=== PATIENT | male | born 1990 | race Caucasian/White ===

== ENCOUNTER 2024-02-06 06:18 | Inpatient (IN) | payer OTHER, SELFPAY ==
[2024-02-06] VITALS (9 sets, daily range): BP systolic 96–160; BP diastolic 49–100; PULSE 62–82; RESP 12–16; TEMP 36.5–37.2; O2SAT 95–97; BMI 20.5
--- NOTE | ~2024-02-06 | XR_ITS ---
EXAMINATION: XR HAND, LEFT CLINICAL INFORMATION: Left hand pain and swelling COMPARISON: None available. TECHNIQUE: PA, lateral, and oblique views of the left hand. FINDINGS: Prominent soft tissue swelling in the thenar region and thumb. No soft tissue gas or radiopaque foreign body. No fracture or malalignment. XR/XR hand LT min 3V IMPRESSION: Prominent soft tissue swelling. No fracture or malalignment.
--- NOTE | 2024-02-06 06:34 | PC.NURSE ---
security called to check pt belongings due to herion use prior to arrival, reason for coming was due to infection to hand from heroin injected.
--- NOTE | 2024-02-06 06:50 | ED_ITS ---
HPI - Wound/Laceration General Chief Complaint: Wound/Laceration Stated Complaint: infection on rt hand Time Seen by Provider: 02/06/24 06:31 Source: patient and RN notes reviewed Mode of arrival: ambulatory Limitations: no limitations History of Present Illness HPI narrative: This is a 33-year-old male, with a history IV drug abuse, presenting to the emergency department with complaints of left hand wound, hand swelling, and pain x2 days. Patient reports that he noticed a wound develop on his left thumb, and reports over the last 2 days he has had worsening swelling, redness, and pain. He admits that he has injected into his hand but states he has not done this in several weeks. He last used 3 hours ago, reporting used a couple of bags of heroin. He admits to subjective fevers and chills. Denies any chest pain, shortness for breath, abdominal pain, nausea, vomiting or diarrhea. No other complaints or concerns at this time. Onset (ago): day(s) Extremity Location: left: hand Patient tetanus UTD: Yes Context: sharp object use Associated symptoms: pain and fever (subjective) Related Data Allergies Allergy/AdvReac Type Severity Reaction Status Date / Time No Known Allergies Allergy Verified 02/06/24 06:33 Review of Systems 2 Review of Systems: Yes all other systems are reviewed and are negative Constitutional: Constitutional: Reports as per HPI [facility] Social History Social History Smoked in Last 30 Days: Yes Use of substances other than those prescribed or required for medical reasons: No Advance Directives: No Advance Directives Information Provided: No Physical Exam 2 Vital Signs: Vital Signs: Last Vital Signs Temp 98.2 F 02/06/24 08:23 Pulse 68 02/06/24 09:56 Resp 13 02/06/24 09:56 BP 123/66 02/06/24 09:56 Pulse Ox 97 02/06/24 09:56 O2 Del Method Room Air 02/06/24 09:56 BMI result Body Mass Index 20.5 Const: General: cooperative, comfortable and no acute distress O rientation/consciousness: patient oriented x3 Limitations: no limitations HEENT: Head: Yes normal to inspection, Yes normocephalic and Yes atraumatic Ears: hearing grossly normal bilaterally General nose exam: Normal external nose present Face and sinus: Yes normal facial exam Mouth: Normal oral and palatal mucosa present, oropharynx normal and moist mucous membranes Throat: Yes posterior oropharynx normal Eyes: General: appearance normal, both eyes and all related structures E yelids: Yes eyelids normal Conjunctivae: conjunctivae normal Sclerae: s clerae normal Pupils: Equal, round and reactive pupils present EOM: EOMs intact bilaterally Neck: Neck: Yes normal visual inspection, Yes full ROM and Yes no lymphadenopathy Lymphatic: no lymphadenopathy noted Chest: Chest palpation & inspection: normal inspection of the chest Resp: Effort & Inspection: normal respiratory effort and able to speak in complete sentences Auscultation: clear to auscultation bilaterally, no crackles, no rales, no rhonchi and no wheezes Cardio: Rate: regular rate Rhythm: regular rhythm Heart sounds: S1 normal heart sound present and S2 normal heart sound present GI: Inspection: Yes normal to inspection Skin: General skin exam: no rashes or lesions noted Trauma: no lacerations or abrasions Wounds: no wounds Neuro: General: patient oriented x3 and moves all extremities Cranial nerves: Yes Equal, round and reactive pupils present Extrem: Other: Left hand with 2.5cm open ulceration noted to the first MCP. Unable to flex and extend at this joint. Profound erythema edema. Induration noted along the 1st digit with exquisite tenderness. Unable to oppose thumb to 3rd 4th and 5th finger. Strong radial pulse. Able to make a fist. General: Yes normal to inspection Right upper extremity: normal to inspection Left upper extremity: normal to inspection Right lower extremity: normal to inspection Left lower extremity: normal to inspection Course Reevaluation(s) Reevaluation #1: Patient with leukocytosis at 18.6, with a left shift. He does have normocytic anemia with an H&H of 9.5/28.8. CRP 7.92. ESR 44. BUN elevated at 24. Creatinine 0.70. X-ray revealing prominent soft tissue swelling, no fracture or malalignment. Discussed case with Shilpa Bates PA-C recommend warm water soaks to allow to open and drain. Will admit to hospitalist for further intervention. Time: 08:53 Reevaluation #2: Shilpa Bates PA-C from orthopedics saw patient at bedside, recommending NPO at midnight in case orthopedics team may need to perform a washout. Dr. Santos accepts transfer of care to hospitalist service. Transfer of care initiated. Time: 09:48 Medications Administered Discontinued Medications Generic Name Dose Route Start Last Admin Trade Name Perez PRN Reason Stop Dose Admin Bacitracin 1 appl 02/06/24 07:15 02/06/24 07:38 Bacitracin Oint 0.9 Gm Packet TOPICAL 02/06/24 07:16 1 appl ONCE ONE Administration Protocol Piperacillin Sod/Tazobactam 50 mls @ 100 mls/hr 02/06/24 06:52 02/06/24 08:11 Sod 3.375 gm/ Sodium Chloride IV 02/06/24 07:21 Infused ONCE ONE Infusion Vancomycin HCl 2,000 mg in 500 mls @ 250 mls/hr 02/06/24 06:52 02/06/24 08:27 Vancomycin/Ns IV 02/06/24 08:51 250 mls/hr ONCE ONE Administration Sodium Chloride 1,000 mls @ 999 mls/hr 02/06/24 08:01 02/06/24 08:27 Ns IV 02/06/24 09:01 999 mls/hr .Q1H1M ONE Administration Medical Decision Making Medical Decision Making [facility] Narrative: This is a 33-year-old male, with a history of IV drug abuse, presenting to the emergency department with complaints of left thumb wound, left hand swelling, redness x2 days. On arrival, vital signs within normal limits. Patient has ulceration/abscess noted to the left PIP with decreased range of motion of the left thumb, diffuse induration, erythema warmth to the entire hand. He is nontoxic appearing, afebrile. Plan: Labs, x-ray, Zosyn and vanco, orthopedic consult, possible admission Differential Diagnosis Differential Diagnoses: The differential diagnosis associated with the presentation includes Cellulitis, abscess, osteomyelitis, tenosynovitis Admission/Observation Consideration of admission/observation: Escalation of care including admission/observation considered Patient requiring IV antibiotics Consult Healthcare Provider Management of the patient was discussed with: Hospitalist and Safety And Health Consultant Orthopedist, KATHRYN Bates Hospitalist - Dr. Santos Lab Data [facility] Lab Attestation statement: I reviewed the patient's lab results. Patient with leukocytosis at 18.6, with a left shift. He does have normocytic anemia with an H&H of 9.5/28.8. CRP 7.92. ESR 44. BUN elevated at 24. Creatinine 0.70. 02/06/24 07:28 02/06/24 07:28 Labs: Lab Results 02/06/24 02/06/24 Range/Units 07:28 10:52 WBC 18.6 H (4.8-10.8) X10*3/uL RBC 3.53 L (4.60-5.80) X10*6/uL Hgb 9.5 L (14.0-18.0) g/dl Hct 28.8 L (42.0-52.0) % MCV 81.6 (80.0-98.0) fL MCH 26.9 L (27.0-33.0) pg MCHC 33.0 (31.0-36.0) g/dl RDW 13.8 (11.0-16.0) % Plt Count 381 (160-400) X10*3/uL MPV 9.6 (9.4-12.4) fL Immature Gran % (Auto) 0.5 H (0.0-0.4) % Neut % (Auto) 78.0 H (45-73) % Lymph % (Auto) 10.7 L (20-40) % [place] % (Auto) 6.6 (2-11) % Eos % (Auto) 3.8 (0-4) % Baso % (Auto) 0.4 (0-2) % Lymph # (Auto) 2.0 (1.2-4.9) X10*3/uL [place] # (Auto) 1.2 (0.1-1.2) X10*3/uL Eos # (Auto) 0.7 H (0.0-0.4) X10*3/uL Baso # (Auto) 0.1 (0.0-0.2) X10*3/uL Abs Immat Gran (auto) 0.10 H (0.00-0.03) X10*3/uL Absolute Neuts (auto) 14.5 H (2.0-8.3) x10*3/uL Absolute Nucleated RBC 0.000 (0.0-0.012) X10*3/uL Nucleated RBC % (auto) 0.0 (0.0-0.2) /100WBC ESR 44 H (0-15) MM/HR Sodium 137 (135-145) mmol/L Potassium 3.7 (3.3-5.1) mmol/L Chloride 105 (96-108) mmol/L Carbon Dioxide 24 (22-29) mmol/L Anion Gap 12 (12-20) BUN 24 H (9-16) mg/dL Creatinine 0.78 (0.5-1.4) mg/dL Estim Creat Clear Calc 136.9 Estimated GFR > 60 Random Glucose 138 H (60-115) mg/dL Calcium 8.8 (8.4-10.2) mg/dL Total Bilirubin 0.2 (0.0-1.0) mg/dL Direct Bilirubin 0.2 (0.0-0.5) mg/dL AST 34 (5-37) U/L ALT 32 (0-40) U/L Alkaline Phosphatase 69 (39-117) U/L C-Reactive Protein 7.92 H (< or = 0.50) mg/dL Total Protein 6.9 (6.5-8.0) g/dL Albumin 3.5 (3.5-5.0) g/dL Urine Color Yellow Urine Appearance Clear Urine pH 6.0 (5.0-9.0) Ur Specific [place] 1.020 (1.005-1.025) Urine Protein Negative (Neg-Trace) mg/dL Urine Glucose (UA) Negative (Negative) mg/dL Urine Ketones Negative (Negative) mg/dL Urine Blood Negative (Negative) Urine Nitrite Negative (Negative) Ur Leukocyte Esterase Negative (Negative) Urine Opiates Screen POSITIVE H (Not Detect) Urine Fentanyl Screen POSITIVE H (Not Detect) Ur Barbiturates Screen Not Detected (Not Detect) Ur Phencyclidine Scrn Not Detected (Not Detect) Ur Amphetamines Screen Not Detected (Not Detect) U Benzodiazepines Scrn Not Detected (Not Detect) Urine Cocaine Screen POSITIVE H (Not Detect) U Marijuana (THC) Screen Not Detected (Not Detect) Independent Interpretation I performed an independent interpretation of an: Plain X-Ray Interpretation: I reviewed the x-ray and agree with the radiology report Radiology Impression Discussion of test interpretation with radiology: I have reviewed the radiologist's reading. Radiologist Impression: EXAMINATION: XR HAND, LEFT CLINICAL INFORMATION: Left hand pain and swelling COMPARISON: None available. TECHNIQUE: PA, lateral, and oblique views of the left hand. FINDINGS: Prominent soft tissue swelling in the thenar region and thumb. No soft tissue gas or radiopaque foreign body. No fracture or malalignment. XR/XR hand LT min 3V IMPRESSION: Prominent soft tissue swelling. No fracture or malalignment. Dictated By: Vidal Kohli MD External Record Review External record reviewed: Inpatient record, Office record, Outpatient record, Prior outpatient labs, Prior outpatient radiology, Primary care record and Outside ED record Critical Care Time Critical Care Time Critical Care Time: Yes Total Critical Care Time: 35 Attestation: I have personally provided critical care time exclusive of time spent on separately billable procedures. Time includes review of lab data, radiology results, discussion with consultants, and monitoring for potential decompensation. Intervention performed as documented. Discharge Plan Discharge Clinical Impression: Cellulitis, Abscess of hand Patient Disposition: Admitted As Inpatient
--- NOTE | 2024-02-06 06:58 | PC.NURSE ---
security came and checked pt for contraban
[2024-02-06 07:33] LABS: MANUAL DIFF FLAG NO
[2024-02-06] MEDS: Bacitracin Oint 0.9 GM PACKET 1 APPL TOPICAL (07:38)
[2024-02-06] MEDS: Piperacillin Sodium/Tazobactam 3.375 GM in 0.9 % Sodium Chloride 50 ML IV (07:38)
[2024-02-06 07:54] LABS: Basophils Absolute Auto 0.1 X10*3/uL (0.0-0.2); Basophils Percent Auto 0.4 % (0-2); Eosinophils Absolute Auto 0.7 X10*3/uL (0.0-0.4); Eosinophils Percent Auto 3.8 % (0-4); Hematocrit 28.8 % (42.0-52.0); Hemoglobin 9.5 g/dl (14.0-18.0); Imm Gran Pct Auto 0.5 % (0.0-0.4); Lymphocytes Percent Auto 10.7 % (20-40); Mean Corpuscular Hemoglobin 26.9 pg (27.0-33.0); Mean Corpuscular Volume 81.6 fL (80.0-98.0); Mean Platelet Volume 9.6 fL (9.4-12.4); Monocytes Absolute Auto 1.2 X10*3/uL (0.1-1.2); Monocytes Percent Auto 6.6 % (2-11); Neutrophils Absolute Auto 14.5 x10*3/uL (2.0-8.3); Platelet Count 381 X10*3/uL (160-400); Red Blood Count 3.53 X10*6/uL (4.60-5.80); Red Cell Distribution Width 13.8 % (11.0-16.0); White Blood Count 18.6 X10*3/uL (4.8-10.8)
[2024-02-06 07:59] LABS: Alanine Aminotransferase 32 U/L (0-40); Albumin Level 3.5 g/dL (3.5-5.0); Alkaline Phosphatase 69 U/L (39-117); Anion Gap 12 (12-20); Aspartate Amino Transferase 34 U/L (5-37); Bilirubin Direct 0.2 mg/dL (0.0-0.5); Bilirubin Total 0.2 mg/dL (0.0-1.0); Blood Urea Nitrogen 24 mg/dL (9-16); C Reactive Protein 7.92 mg/dL (< or = 0.50); Calcium 8.8 mg/dL (8.4-10.2); Carbon Dioxide 24 mmol/L (22-29); Chloride 105 mmol/L (96-108); Creatinine Clr Calc Pharmacy 136.9; Estimated Glomerular Filt Rate > 60; Glucose Random 138 mg/dL (60-115); Potassium 3.7 mmol/L (3.3-5.1); Sodium 137 mmol/L (135-145); Total Protein 6.9 g/dL (6.5-8.0)
--- NOTE | 2024-02-06 08:11 | PC.NURSE ---
this RN resumed care of pt at this time. a&ox4 but pt is seemingly sleepy. pt dozing off but is responsive to verbal stimuli when he is asked questions. vss and up to date. nsr on the court recording monitor. pt presents to the ED d/t left hand pain d/t recent IV drug use. pt verbalizes using cocaine/heroin via IV [employer]. left hand extremely red/swollen. abscess noted to the left thumb. clear drainage noted coming from thumb area. no distinct smell noted. pt afebrile. pt extremely sensitive/hand tender to the touch. left hand wrapped w/ bacitracin, nonstick, pad, A&D pad, and gauze. delay in medication administration d/t being a difficult stick. 20gIV placed in the left forearm. medication administered per provider order. no sob/wob noted. respirations even and unlabored. plan of care ongoing. call onofre placed within reach.
[2024-02-06 08:15] LABS: Erythrocyte Sedimentation Rate 44 MM/HR (0-15)
[2024-02-06] MEDS: 0.9 % Sodium Chloride 1,000 ML 999 ML IV (08:27)
[2024-02-06] MEDS: vancomycin/NS 2,000 MG/500 ML PLAST..BAG 250 MG IV (08:27)
--- NOTE | 2024-02-06 08:30 | PC.NURSE ---
abx/IVF administered per provider order.
--- NOTE | 2024-02-06 10:15 | PC.NURSE ---
vss and up to date. nsr on the classroom monitor. pt resting comfortably w/ eyes closed in no apparent distress at this time. respirations remain even and unlabored. pt pending admission at this time. plan of care ongoing. call onofre placed within reach.
--- NOTE | 2024-02-06 10:53 | PC.NURSE ---
UA/drug screen obtained/sent to lab by [facility].
[2024-02-06 11:05] LABS: Appearance Urine Clear; Color Urine Yellow; Glucose Urine UA Negative (Negative); Leukocyte Esterase Urine Negative (Negative); Nitrite Urine Negative (Negative); Urine Blood Negative (Negative); Urine Ketones Negative (Negative); Urine Protein Negative (Neg-Trace)
--- NOTE | 2024-02-06 11:06 | PM.IMHP ---
History of Present Illness Date of Service: 02/06/24 Chief Complaint: Abscess and cellulitis of the left hand A 33-year-old male, right-hand dominant, with a history of IV drug injection, presents with a wound and swelling in his left hand (see picture below) for the past 2 days. It began as a wound on the thumb and has progressively worsened, becoming more swollen, draining, and red. He admits to injecting into his hand remotely. He reports subjective fever and chills. X-ray of the hand shows prominent soft tissue swelling with no fracture or malalignment. Ortho has been consulted and may explore the wound tomorrow. He has been administered IV Zosyn and Vancomycin, which will be continued. He is cooperative. Review of Systems Review of Systems: Gen: subjective fever Resp: no sob, no cough CV: no chest, no CALL, no leg edema GI: No n/v, no abd pain Neuro: No confusion MS: pain, swelling of the left hand Yes all other systems are reviewed and are negative [facility] Social History Smoked in Last 30 Days: Yes Use of substances other than those prescribed or required for medical reasons: No Advance Directives: No Advance Directives Information Provided: No Meds Allergies Allergy/AdvReac Type Severity Reaction Status Date / Time No Known Allergies Allergy Verified 02/06/24 06:33 Physical Exam Vital Signs and Narrative: Vital Signs: Last Vital Signs Temp 98.2 F 02/06/24 08:23 Pulse 68 02/06/24 09:56 Resp 13 02/06/24 09:56 BP 123/66 02/06/24 09:56 Pulse Ox 97 02/06/24 09:56 O2 Del Method Room Air 02/06/24 09:56 BMI result Body Mass Index 20.5 Constitutional: Alert, in no distress, Mental Status: Oriented to person, place and time. Eyes: Pupils are equal, round and reactive to light. Ear, Nose and Throat: Oropharynx clear, mucous membranes moist. Ears and nose without eformities. Trachea midline. Respiratory: Clear to auscultation. No wheezing, rales or rhonchi. Cardiovascular: S1 S2 regular. No murmurs, rubs or gallops. Gastrointestinal: Abdomen soft, non-tender, non-distended. Normal bowel sounds.? Neurologic: Cranial nerves II-XII grossly intact. No focal neurological deficits. Moves all extremities spontaneously.? Skin: Musculoskeletal: No cyanosis or clubbing. Psychiatric: Normal mood and affect? Results Labs 02/06/24 07:28 02/06/24 07:28 Labs: Laboratory Results - last 24 hr 02/06/24 02/06/24 07:28 10:52 MCV 81.6 MCH 26.9 L MCHC 33.0 RDW 13.8 Plt Count 381 MPV 9.6 Immature Gran % (Auto) 0.5 H Neut % (Auto) 78.0 H Lymph % (Auto) 10.7 L [place] % (Auto) 6.6 Eos % (Auto) 3.8 Baso % (Auto) 0.4 Lymph # (Auto) 2.0 [place] # (Auto) 1.2 Eos # (Auto) 0.7 H Baso # (Auto) 0.1 Abs Immat Gran (auto) 0.10 H Absolute Neuts (auto) 14.5 H Absolute Nucleated RBC 0.000 Nucleated RBC % (auto) 0.0 ESR 44 H Anion Gap 12 Estim Creat Clear Calc 136.9 Estimated GFR > 60 Random Glucose 138 H Calcium 8.8 Total Bilirubin 0.2 Direct Bilirubin 0.2 AST 34 ALT 32 Alkaline Phosphatase 69 C-Reactive Protein 7.92 H Total Protein 6.9 Albumin 3.5 Urine Color Yellow Urine Appearance Clear Urine pH 6.0 Ur Specific [place] 1.020 Urine Protein Negative Urine Glucose (UA) Negative Urine Ketones Negative Urine Blood Negative Urine Nitrite Negative Ur Leukocyte Esterase Negative Imaging Radiologist's Impressions: Impressions Hand X-Ray 02/06/24 07:05 IMPRESSION: Prominent soft tissue swelling. No fracture or malalignment. Assessment and Plan (1) Abscess of hand: Status: Acute (2) Cellulitis: Status: Acute Plan 33/M with IVDA here with cellulitis and abscess of the and left hand Sepsis d/t Cellulitis and abscess on the left hand -Continue Zosyn and Vanco, follow cultures -Ortho consult for possible I and D -ID consult for antibiotics guidance -Echo if becomes bacteremia -morphine for pain Opioid use desorder(positive for opioid and fentanyl)--Addiction med consult, clonidine for withdrwal symptoms, hydroxysine for anxiety, abstincence discussed Anemia likely related to chronic substance use--H/H above threshold for transfusion, monitor, DVT prophylaxis: lovenox Full Code At least 2 midngiths admit for management of sepsis, abscess and cellulitis of the ahdnd at risk for limb loss if not aggresively treated with IV Abx and expert evaluation with possible intervention Quality Stroke Does the patient have a stroke diagnosis?: No VTE Prior VTE?: No VTE Risk Level:: Medical - moderate - high VTE Device Contraindication: Treatment Not Indicated VTE Drug Contraindication: N/A - Med Ordered
[2024-02-06 11:11] LABS: Amphetamine Screen Urine Not Detected (Not Detect); Barbiturates, Urine Not Detected (Not Detect); Benzodiazepines Screen Urine Not Detected (Not Detect); Cannabinoid Screen Urine Not Detected (Not Detect); Cocaine Screen Urine POSITIVE (Not Detect); Fentanyl, urine POSITIVE (Not Detect); Opiate Screen Urine POSITIVE (Not Detect); Phencyclidine Screen Urine Not Detected (Not Detect)
--- NOTE | 2024-02-06 11:20 | PHA.PROG ---
Admission Date/Time: Indication: Sepsis Weight in k.575 kg Adjusted body weight in K kg [place] body weight in K.2 kg Obesity Dosing Indication % IBW: n/a Serum Creatinine - Last 168 Hours 02/06/24 07:28 Creatinine 0.78 Estimated CrCl and GFR - Last 168 Hours 02/06/24 07:28 Estim Creat Clear Calc 136.9 Estimated GFR > 60 Vancomycin Loading Dose: 2000 mg Current Vancomycin Dosing Regimen: 1250 mg Q12H Date and Time for next Vancomycin Level to be drawn: 02/06 @ 1800 Pharmacist Comments on Vancomycin Plan: patient recevied an adequate load dose in the ER on 02/05 @ 0827 maintenance dose vancomycin 1250 mg Q12H is scheduled to start on 02/05 @ 1999. Predict AUC 500 with a trough of 14.3. level will be drawn piror to 4th dose pharmacy will monitor renal funciton daily Edilia Jeffries PharmD Vancomycin dosing will take advantage of [employer] as a clinical decision support tool that uses Bayesian modeling to calculate individual patient's pharmacokinetic parameters and forecast the patient's drug concentration time course with the target goal AUC 24 range of 400 - 600 mg/L/hr.
[2024-02-06] MEDS: Enoxaparin Sodium 40 MG/0.4 ML SYRINGE SUBCUT (12:22)
--- NOTE | 2024-02-06 12:34 | PC.NURSE ---
medication administered per provider order.
--- NOTE | 2024-02-06 12:41 | PC.NURSE ---
security called to recheck pt's belongings at this time prior to pt being transported upstairs.
--- NOTE | 2024-02-06 13:03 | PC.NURSE ---
pt's belongings searched by security. contraband/knives found/taken to decon for when pt is d/c'd. $120 navarro also noted to be found. patient belongings list updated by Deminos at this time.
--- NOTE | 2024-02-06 13:10 | MHC.EDTECH ---
Security searched patients belongings and found knives and contraband on patient placed both in decon. RN AWARE
--- NOTE | 2024-02-06 13:20 | PC.NURSE ---
admission worksheet complete. transport notified at this time.
--- NOTE | 2024-02-06 14:19 | P.CONOP_ITS ---
History of Present Illness HPI Consult date: 02/06/24 Chief complaint: Sepsis Cellulitis and Abscess L Hand Narrative: A 33-year-old male, right-hand dominant, with a history of IV drug use, admitted to the medical service for IV abx for a wound in his left hand. Upon arrival to see the patient this morning, he was asleep and did not wake to me calling his name, knocking on the wall or lightly shaking him. Per ED provider, he came in earlier today after using. ED records state for the past 2 days It has progressively worsened, becoming more swollen, draining, and red. ED and hospital notes state he admits to injecting into his hand remotely. X-ray of the hand shows prominent soft tissue swelling with no fracture or malalignment. No foreign body. He has been administered IV Zosyn and Vancomycin and orthopedics was consulted for further recommendations. Review of Systems 2 Review of Systems: Yes all other systems are reviewed and are negative [facility] Social History Social History Patient Tobacco Use Status: Never used Tobacco Meds Allergies Allergy/AdvReac Type Severity Reaction Status Date / Time No Known Allergies Allergy Verified 02/06/24 06:33 Active Medications: Current Medications Acetaminophen (Acetaminophen 325 Mg Tablet) 650 mg PO Q6H PRN PRN Reason: Pain, Mild (Pain Scale 1-3) Clonidine HCl (Clonidine Hcl 0.1 Mg Tablet) 0.1 mg PO TID PRN; Protocol PRN Reason: Opiate Withdrawal Enoxaparin Sodium (Enoxaparin Sodium 40 Mg/0.4 Ml Syringe) 40 mg SUBCUT Q24H [facility] Last Admin: 02/06/24 12:22 Dose: 40 mg Hydroxyzine HCl (Hydroxyzine Hcl 25 Mg Tablet) 25 mg PO Q6H PRN PRN Reason: anxiety/restlessness Piperacillin Sod/Tazobactam (Sod 4.5 gm/ Sodium Chloride) 50 mls @ 100 mls/hr IV Q6H [facility] Last Infusion: 02/06/24 13:14 Dose: Infused Vancomycin HCl 1,250 mg/ (Sodium Chloride) 250 mls @ 166.667 mls/hr IV Q12H [facility] Magnesium Hydroxide (Milk Of Magnesia 30 Ml Oral.Susp) 30 ml PO DAILY PRN PRN Reason: Constipation Melatonin (Melatonin 3 Mg Tablet) 6 mg PO BEDTIME PRN PRN Reason: Insomnia Morphine Sulfate (Morphine Sulfate 4 Mg/Ml Cartridge) 2 mg IVPUSH Q4H PRN; Protocol PRN Reason: Pain, Severe (Pain Scale 7-10) Ondansetron HCl (Ondansetron Hcl 4 Mg/2 Ml Vial) 4 mg IVPUSH Q8H PRN PRN Reason: Nausea and Vomiting Pharmacy Consult (Consult Rx Vancomycin Dosing) 1 each MISCELLANE DAILY PRN PRN Reason: Consult order Sodium Chloride (0.9 % Sodium Chloride Flush 3 Ml Syringe) 3 ml IVFLUSH QSHIFT [facility] Physical Exam 2 Vital Signs: Vital Signs: Last Vital Signs Temp 98.2 F 02/06/24 14:07 Pulse 62 02/06/24 14:07 Resp 16 02/06/24 14:07 BP 96/51 L 02/06/24 14:07 Pulse Ox 97 02/06/24 14:07 O2 Del Method Room Air 02/06/24 14:07 BMI result Body Mass Index 20.5 Const: General: no acute distress Extrem: Other: Results Labs 02/06/24 07:28 02/06/24 07:28 Labs: Abnormal lab results 02/06/24 02/06/24 Range/Units 07:28 10:52 WBC 18.6 H (4.8-10.8) X10*3/uL RBC 3.53 L (4.60-5.80) X10*6/uL Hgb 9.5 L (14.0-18.0) g/dl Hct 28.8 L (42.0-52.0) % MCH 26.9 L (27.0-33.0) pg Immature Gran % (Auto) 0.5 H (0.0-0.4) % Neut % (Auto) 78.0 H (45-73) % Lymph % (Auto) 10.7 L (20-40) % Eos # (Auto) 0.7 H (0.0-0.4) X10*3/uL Abs Immat Gran (auto) 0.10 H (0.00-0.03) X10*3/uL Absolute Neuts (auto) 14.5 H (2.0-8.3) x10*3/uL ESR 44 H (0-15) MM/HR BUN 24 H (9-16) mg/dL Random Glucose 138 H (60-115) mg/dL C-Reactive Protein 7.92 H (< or = 0.50) mg/dL Urine Opiates Screen POSITIVE H (Not Detect) Urine Fentanyl Screen POSITIVE H (Not Detect) Urine Cocaine Screen POSITIVE H (Not Detect) H & H 02/06/24 Range/Units 07:28 Hgb 9.5 L (14.0-18.0) g/dl Hct 28.8 L (42.0-52.0) % All other labs normal. Assessment and Plan (1) Abscess of hand: Status: Acute Plan Unable to examine patient as he is asleep From the above picture, it appears to be an open wound which is draining I recommend warm water soaks continue IV abx NPO after midnight for possible washout tomorrow Procedures Date of Service Date of Service: 02/06/24
--- NOTE | 2024-02-06 15:17 | MHC.RECOVRN ---
Met with pt in 371 after consult placed to Addiction Medicine for opioid use disorder. Pt had presented to the ED reporting left thumb wound after using the area for injecting substances. Upon evaluation, pt admitted for abscess and cellulitis. Pt laying in bed, asleep, briefly wakes to voice. Unable to fully engage in conversation as pt is drowsy. Pt reports heroin/fentanyl use, 1-2 bundles daily, IV, last use prior to arrival. Pt is not currently on MOUD. Pt would like to utilize methadone while here to address any withdrawal symptoms that present. Pt quickly falls back to sleep during conversation, denies questions or concerns for t/w. Discussed with provider.
[2024-02-06] MEDS: 0.9 % Sodium Chloride Flush 3 ML SYRINGE IVFLUSH ×2 (15:28→20:39)
--- NOTE | 2024-02-06 15:31 | PHA.MEDREC ---
Pharmacy Consult ? Medication Reconciliation Pharmacy has completed the medication reconciliation. spoke with patient to confirm.
[2024-02-06] MEDS: 0.9 % Sodium Chloride 1,000 ML 150 ML IVCONT (15:39)
[2024-02-06] MEDS: vancomycin HCL 1,250 MG in 0.9 % Sodium Chloride 250 ML 166.67 MG IV (19:27)
[2024-02-06] MEDS: Morphine Sulfate 4 MG/ML CARTRIDGE 2 MG IVPUSH (20:38)
[2024-02-06] MEDS: hydrOXYzine HCL 25 MG TABLET PO (20:47)
[2024-02-06] MEDS: cloNIDine HCL 0.1 MG TABLET PO (20:47)
[2024-02-06] MEDS: Melatonin 3 MG TABLET 6 MG PO (20:47)
--- NOTE | 2024-02-06 21:21 | PM.EVENT ---
Event Note Date of Service: 02/06/24 Event Note: Nurse reported that patient wanted to leave AMA. Patient deemed to have capacity. Explained to him the risk of leaving including worsening of the hand infection, septicemia and/or . Patient understands the risks of his actions. He is unwilling to stay. Time Spent With Patient Time: Total time managing care of this patient today ____ minutes.
--- NOTE | 2024-02-06 21:38 | PC.NURSE ---
pt wants to leave as an AMA, doctor came in discuss with pt about the importance of the antibiotic and risk of AMA, this nurse tried to let him stay provided everything per eMar. he was asking for methodone 40 mg, he changed his mind he wants to leave. escort to ED security office to get his knife and pt asked to how to get to [facility] and walked out the door.
--- NOTE | 2024-02-07 07:21 | PM.DS ---
DS: Providers Provider Date of Service: 02/07/24 Date of admission: 02/06/24 11:38 Primary care physician: Unknown Physician Consults: 02/06/24 09:48 Consult to Orthopedics Stat Consulting Provider: [facility] Orthopedic Surgeons Reason for consultation: left hand cellulitis/abscess Has provider been notified: Yes 02/06/24 11:05 Addiction Medicine Routine Consulting Provider: Addiction Covering Reason for consultation: Opioid use desorder Has provider been notified: No 02/06/24 11:09 Consult to Infectious Diseases Routine Consulting Provider: [facility] Infectious Disease Reason for consultation: abscess cellulitis of the hand in a drug user DS: Diagnosis Discharge Diagnosis (1) Abscess of hand: Status: Acute DS: Summary Hospital Course Hospital Course: admission hpi A 33-year-old male, right-hand dominant, with a history of IV drug injection, presents with a wound and swelling in his left hand (see picture below) for the past 2 days. It began as a wound on the thumb and has progressively worsened, becoming more swollen, draining, and red. He admits to injecting into his hand remotely. He reports subjective fever and chills. X-ray of the hand shows prominent soft tissue swelling with no fracture or malalignment. Ortho has been consulted and may explore the wound tomorrow. He has been administered IV Zosyn and Vancomycin, which will be continued. He is cooperative. Hospital course: He was admitted with cellulitis and hand abscess and was being treated with IV Abx, and surgery was to assess him for need for I and D, he decied to leave A as discussed elsewhere. Final diagnosis: Cellulitis and abscess of the left hand Opioid use disorder Anemia Time Attestation Discharge Coordination Time (in mins): 15 Quality: Safe Use of Opioids Does Pt have an Active Cancer Diagnosis on the Problem List?: No Quality: Stroke Does the patient have a stroke diagnosis?: No Physical Exam Vital Signs: Vital Signs: Last Vital Signs Temp 99 F 02/06/24 19:44 Pulse 80 02/06/24 19:44 Resp 16 02/06/24 19:44 BP 97/54 L 02/06/24 19:44 Pulse Ox 97 02/06/24 19:44 O2 Del Method Room Air 02/06/24 19:44 BMI result Body Mass Index 20.5 DS: Data Data Completed and Pending Labs on day of discharge: Laboratory Results - last 24 hr 02/06/24 02/06/24 07:28 10:52 WBC 18.6 H RBC 3.53 L Hgb 9.5 L Hct 28.8 L MCV 81.6 MCH 26.9 L MCHC 33.0 RDW 13.8 Plt Count 381 MPV 9.6 Immature Gran % (Auto) 0.5 H Neut % (Auto) 78.0 H Lymph % (Auto) 10.7 L [place] % (Auto) 6.6 Eos % (Auto) 3.8 Baso % (Auto) 0.4 Lymph # (Auto) 2.0 [place] # (Auto) 1.2 Eos # (Auto) 0.7 H Baso # (Auto) 0.1 Abs Immat Gran (auto) 0.10 H Absolute Neuts (auto) 14.5 H Absolute Nucleated RBC 0.000 Nucleated RBC % (auto) 0.0 ESR 44 H Sodium 137 Potassium 3.7 Chloride 105 Carbon Dioxide 24 Anion Gap 12 BUN 24 H Creatinine 0.78 Estim Creat Clear Calc 136.9 Estimated GFR > 60 Random Glucose 138 H Calcium 8.8 Total Bilirubin 0.2 Direct Bilirubin 0.2 AST 34 ALT 32 Alkaline Phosphatase 69 C-Reactive Protein 7.92 H Total Protein 6.9 Albumin 3.5 Urine Color Yellow Urine Appearance Clear Urine pH 6.0 Ur Specific [place] 1.020 Urine Protein Negative Urine Glucose (UA) Negative Urine Ketones Negative Urine Blood Negative Urine Nitrite Negative Ur Leukocyte Esterase Negative Urine Opiates Screen POSITIVE H Urine Fentanyl Screen POSITIVE H Ur Barbiturates Screen Not Detected Ur Phencyclidine Scrn Not Detected Ur Amphetamines Screen Not Detected U Benzodiazepines Scrn Not Detected Urine Cocaine Screen POSITIVE H U Marijuana (THC) Screen Not Detected Discharge Plan Discharge Anticipated Discharge Date/Time: 02/06/24 21:24 Patient Disposition: Left Against Medical Advice Discharge Diagnosis: Cellulitis and abscess of the left hand Referrals: Physician,Karen J [Primary Care Provider] - 1 Week Discharge Medications: No Action No Known Home Meds Discharge Orders: Discharge Order (Routine); Ordered 02/07/24 Ordered By: Richi Barros Diet: Advance to usual diet Activity on Discharge: As tolerated Care Plan Goals: recovery from cellulitis and abscess of the left hand Health Concerns: cellulitis and abscess of the hand Plan of Treatment: Left AMA Assessment: see above Discharge Date/Time: 02/06/24 21:30
== END 2024-02-06 21:30 | disposition left against medical advice (07) | DRG 383 ==
LOC: HO.ED 11:15 → HO.EDOVER 11:43 → HO.S3 12:41
PROVIDERS: Physician Assistant Medical; Admitting Provider Internal Medicine; Emergency Provider Emergency Medicine; Visit Provider Internal Medicine
DX: L02.512 Cutaneous abscess of left hand (principal); A41.9 Sepsis, unspecified organism; D64.9 Anemia, unspecified; L03.012 Cellulitis of left finger; F11.90 Opioid use, unspecified, uncomplicated
CPT/HCPCS: 36415; 73130; 80048; 80076; 80307; 81003; 85025; 85652; 86140; 87040; 87070; 87077; 87186; 87205; 92950; 99221; 99285; J1650; J2270; J2543; J3370; J3371

== ENCOUNTER → 2024-02-06 11:38 | Outpatient (BNV) | payer OTHER, SELFPAY | PROVIDERS: Admitting Provider Internal Medicine; Emergency Provider Emergency Medicine; Visit Provider Physician Assistant | DX: L02.519 Cutaneous abscess of unspecified hand (principal) | CPT/HCPCS: 99221 ==

== ENCOUNTER → 2024-02-06 11:38 | Outpatient (BNV) | payer OTHER, SELFPAY | PROVIDERS: Admitting Provider Internal Medicine; Emergency Provider Emergency Medicine; Visit Provider Internal Medicine | DX: A41.9 Sepsis, unspecified organism (principal); L03.114 Cellulitis of left upper limb; L02.512 Cutaneous abscess of left hand; Z53.29 Procedure and treatment not carried out because of patient's decision for other reasons | CPT/HCPCS: 99235; 99499 ==

== ENCOUNTER 2024-02-21 05:19 | Emergency (ER) | payer OTHER, SELFPAY ==
[2024-02-21 05:25] VITALS: BP 117/74; BP 152/90; PULSE 114; PULSE 120; RESP 18; TEMP 36.3; O2SAT 100; O2SAT 97; BMI 18.1
--- NOTE | 2024-02-21 05:32 | ED.SEIZURE ---
HPI - Seizure General Chief Complaint: Seizure Stated Complaint: ?SZ,?POST ICTAL,NO H/O SZ PER EMS Time Seen by Provider: 02/21/24 05:21 Source: patient, EMS and old records reviewed Mode of arrival: EMS Limitations: no limitations History of Present Illness HPI Narrative: 33 yo male with PMH of IVDA used IV cocaine tonight. Had a 4 min GTC seizure now with facial trauma fought EMS on transport came to ED no longer postictal or confused still states he wants to leave AMA. He denies illness or trauma. He states he needs to leave to be with his . He is alert and oriented x 3. MD complaint: seizure and possible seizure Onset (ago): minute(s) (just prior to arrival ) Description of Episode: loss of consciousness Duration of episode: 4 -: minutes(s) Witnessed: Yes - by Bystander Trauma: Yes (R side facial) Seizure History: No Place: Home Possible Precipitating Event: drug use Associated symptoms: denies other symptoms Treatments prior to arrival: none Related Data Home Medications Medication Instructions Recorded Confirmed No Known Home Meds 02/06/24 02/06/24 Allergies Allergy/AdvReac Type Severity Reaction Status Date / Time No Known Allergies Allergy Verified 02/06/24 06:33 Review of Systems Review of Systems: Constitutional : No Fever, No Chills, No Fatigue ENT/Mouth : No sore throat, No Rhinorrhea Eyes: No Eye Pain, No Swelling, No Redness Cardiovascular : No Chest Pain, No SOB, No Dyspnea on Exertion Respiratory : No Cough, No Sputum Gastrointestinal : No Nausea, No Vomiting, No Diarrhea, No abdominal Pain Genitourinary : No Dysuria, No Urinary Frequency, No Hematuria, Musculoskeletal : No joint pain, No Myalgias, No Joint Swelling Skin : No Skin Lesions, No rash, pos contusion Neuro : No Weakness, No Numbness, No Dizziness, no Headache All other systems reviewed and are negative PMFSH Past Medical History Attestation statement: The following information was validated with the patient. Source: old records reviewed Medical History Intravenous drug abuse Abscess of hand Social History Social History Household Members: None Housing: Unknown / Unable to assess Do you presently have visiting nurse or other home services: No Alcohol intake: former Patient Tobacco Use Status: Never used Tobacco Smoked in Last 30 Days: Yes Use of substances other than those prescribed or required for medical reasons: Yes Substance Use Type: Crack/Cocaine and Heroin Last Used Substance: Hours (ago) Any prior treatment program specific to substance use: Yes Physical Exam Vital Signs: Vital Signs: Last Vital Signs Temp 97.4 F 02/21/24 05:25 Pulse 114 H 02/21/24 05:25 Resp 18 02/21/24 05:25 BP 117/74 02/21/24 05:25 Pulse Ox 97 02/21/24 05:25 O2 Del Method Room Air 02/21/24 05:25 BMI result Body Mass Index 18.1 Appearance: Alert. Oriented X3. No acute distress. Eyes: Pupils equal, round and reactive to light. ENT: Pharynx normal. Contusions to R zygoma and mandible with avulsed 1-2cm open abrasion on R lower mandible Neck: Normal inspection. Neck supple. CVS: tachycardic heart rate and rhythm. Pulses normal. Respiratory: No respiratory distress. Breath sounds normal. Abdomen: Soft and nontender. Skin: Skin warm and dry. Normal skin color. Normal skin turgor. Extremities: No lower extremity edema. No calf ttp Neuro: Oriented X 3. No motor deficit. No sensory deficit. Medical Decision Making Medical Decision Making MDM Narrative: 33 yo male with PMH of IVDA s/p seizure with facial trauma he is alert and oriented x 3 no distracting injury not postictal on arrival he agrees to PIC blood sugar but is going to leave AMA at this time has left AMA in the past. Offered labs, CT scans for trauma and ICH but he refuses. Able to repeat back and answer my questions. Differential Diagnosis Differential Diagnoses: The differential diagnosis associated with the presentation includes seizure related to drug abuse, trauma, ICH, TBI Admission/Observation Consideration of admission/observation: Escalation of care including admission/observation considered refuses workup alert and oriented x 3 aware we are worried about more seizures, trauma, lab abnormalities, ICH, fracture but still refuses workup Lab Data Labs: Lab Results 02/21/24 Range/Units 05:32 POC Glucose 91 (60-115) mg/dL Independent Interpretation I performed an independent interpretation of an: EKG Interpretation: Rate: 105 Rhythm: sinus tachycardia [place]: normal Normal P waves. Normal THO. incomplete RBBB ST T wave : mp BRANDON. inverted t waves aVL, V1-V2 qTC: 473 prior studies: no STEMI The study has been interpreted contemporaneously by me. . Independent Historian Clinical information obtained from an independent historian. History obtained from or confirmed by: EMS External Record Review External record reviewed: Inpatient record Tests considered The following testing was considered but not selected: labs, CT scans Procedures Laceration Laceration 1: Site: face Side (If applicable): right Size (cm): 1 Description: flap and irregular Depth: simple, single layer Pre-repair: wound explored, irrigated extensively and deep structures intact Skin layer closed with: other (skin adhesive) Discharge Plan Discharge Clinical Impression: Seizure-like activity Facial trauma Qualifiers: Encounter type: initial encounter Qualified Code(s): S09.93XA - Unspecified injury of face, initial encounter Patient Disposition: Left Against Medical Advice Instructions: Head Injury (ED), Skin Adhesive Care (ED), Against Medical Advice (ED), New-Onset Seizure in Adults (ED), Facial Contusion (ED) Additional Instructions: you left against medical advice it was advised you stay for labs, electrocardiogram, blood work, CT scan of head, facial bones for trauma. You were also offered medications while in the ED. if you change your mind or have return or worsening of symptoms please return at any time surgical glue will fall off in 1 week Prescriptions: No Action No Known Home Meds Stand Alone Forms: Against Medical Advice
--- NOTE | 2024-02-21 05:34 | ECG_ITS ---
Test Reason : ??SEIZURE Blood Pressure : / mmHG Vent. Rate : 105 BPM Atrial Rate : 105 BPM P-R Int : 150 ms QRS Dur : 110 ms QT Int : 358 ms P-R-T Axes : 068 066 069 degrees QTc Int : 473 ms Sinus tachycardia Incomplete right bundle branch block Borderline ECG No previous ECGs available Referred By: Valerie Christopher Electronically Signed By:DEE SKAGGS MD
[2024-02-21 05:35] LABS: Glucose, Whole Blood 91 mg/dL (60-115)
--- NOTE | 2024-02-21 05:48 | PC.NURSE ---
Patient BIBA from [facility] for evaluation of possible seizure. According to patient's spouse he was on the restroom floor, behind the closed door seizing approximately 2 min. Patient admitting using cocaine few hour prior to the seizure activity. On arrival to ED, patient is alert and oriented x3, tach hr 112-114. Lac noted to right cheek. POC 91. EKG completed. Seizure pads applied to side rails. Patient placed on media monitor. Patient is alert and oriented x3, he denies any pain. Patient requesting to leave against medical advise, patient refusing labs, CT scan, X-ray, IV medications. Dr. Candi rubio. applied surgical glue to right jaw laceration.
[2024-02-21 06:04] VITALS: BP 110/74; PULSE 110; RESP 18; TEMP 36.3; O2SAT 97
== END 2024-02-21 06:44 | disposition left against medical advice (07) ==
LOC: HO.ED 06:45
PROVIDERS: Emergency Provider Emergency Medicine
DX: S01.81XA Laceration without foreign body of other part of head, initial encounter (principal); R00.0 Tachycardia, unspecified; R51.9 Headache, unspecified; X58.XXXA Exposure to other specified factors, initial encounter; Y93.9 Activity, unspecified; Y92.9 Unspecified place or not applicable; Y99.8 Other external cause status
CPT/HCPCS: 12011; 82947; 93005; 99283; 99284

== ENCOUNTER → 2024-02-21 05:34 | Outpatient (BNV) | payer OTHER, SELFPAY | PROVIDERS: Emergency Provider Emergency Medicine; Visit Provider Internal Medicine Cardiovascular Disease | DX: R00.0 Tachycardia, unspecified (principal) | CPT/HCPCS: 93010 ==

== ENCOUNTER 2024-03-29 01:01 | Inpatient (IN) | payer OTHER, SELFPAY ==
[2024-03-29] VITALS (7 sets, daily range): BP systolic 111–144; BP diastolic 66–84; PULSE 67–99; RESP 16–20; TEMP 36.7–37.1; O2SAT 94–100; BMI 20.9; BMI 20.5
--- NOTE | ~2024-03-29 | XR_ITS ---
EXAMINATION: XR HAND/WRIST, LEFT CLINICAL INFORMATION: Pain COMPARISON: 02/06/2024 TECHNIQUE: PA, lateral, and oblique views of the left hand and wrist. FINDINGS: Osseous alignment is anatomic. No acute fracture is seen. Soft tissue swelling is noted in the region of the base of the thumb as well as in the dorsal soft tissues. XR/XR hand wrist LT IMPRESSION: Soft tissue swelling without acute osseous findings.
--- NOTE | ~2024-03-29 | CT_ITS ---
EXAMINATION: CT left hand with IV contrast CLINICAL INFORMATION: Question abscess COMPARISON: Previous x-rays most recent from earlier the same day TECHNIQUE: Axial images through the left hand were performed following 85 mL Omnipaque 350 IV contrast. Sagittal and coronal reconstructions on the technologist workstation were performed. This CT examination was performed using dose optimization techniques as appropriate, variously including the following: *Automated exposure control *Adjustment of mA and/or kV according to patient size (this includes techniques or standardized protocols for targeted exams where dose is matched to indication/reason for exam; i.e. extremities or head) *Use of iterative reconstruction technique DLP 1 1 3 mg/cm. FINDINGS: There are multiloculated fluid collections with peripheral wall enhancement in the dorsal wrist and distal forearm, radial side. Fluid surrounds the extensor tendon sheaths over first, second and third digits. Findings are suggestive of extensor compartment tenosynovitis. Presumably this represents septic tenosynovitis. No obvious tendon tear is seen by CT however MRI would be more sensitive. There is diffuse subcutaneous edema and fat stranding of the dorsal wrist and hand probably representing cellulitis. No fracture, dislocation or bone lesion is seen. Joint spaces are normal. No evidence of osteomyelitis is seen. CT/CT hand LT w IV con IMPRESSION: Multiloculated fluid collections with peripheral wall enhancement in the dorsal wrist and distal forearm, radial side. Fluid surrounds the extensor tendon sheaths of the first, second and third digits. Findings are suggestive of septic tenosynovitis. No obvious tendon tear is seen by CT however MRI would be more sensitive. Probable cellulitis of the dorsal wrist and hand. No evidence of osteomyelitis.
--- NOTE | 2024-03-29 01:15 | PC.NURSE ---
pt is afebrile vss. pt does not meet sepsis criteria at this time. awaiting eval by ed provider.
--- NOTE | 2024-03-29 02:50 | MHC.EDTECH ---
This Tech witnessed Pt sitting on the ground. When PT was asked to please get back on to the stretcher pt became hostile and aggressive towards this Tech. Pt stated if he is not seen he is going to start fighting. at that moment Pt was told by this Tech if he continues security will be called. Pt is now sitting back on the stretcher being seen by DR Cardenas
--- NOTE | 2024-03-29 02:54 | ED_ITS ---
HPI - Extremity Problem General Chief complaint: Extremity Problem Stated complaint: left hand/wrist pain Time Seen by Provider: 03/29/24 02:22 Source: patient Mode of arrival: ambulatory History of Present Illness HPI Narrative: 33-year-old male with significant IVDA history presents with worsening left hand/wrist pain for 4 days and states at this point he is unable to flex and extend his hand due to the pain. He denies injecting in the hand. Related Data Home Medications ?Medication ?Instructions ?Recorded ?Confirmed No Known Home Meds 02/06/24 02/06/24 Allergies Allergy/AdvReac Type Severity Reaction Status Date / Time No Known Allergies Allergy Verified 03/29/24 01:18 Review of Systems 2 Review of Systems: Pertinent positives and negatives as stated in HPI [facility] Past Medical History Source: nursing notes reviewed Medical History Intravenous drug abuse Abscess of hand Social History Social History Household Members: None Housing: Unknown / Unable to assess Do you presently have visiting nurse or other home services: No Alcohol intake: former Patient Tobacco Use Status: Never used Tobacco Substance Use Type: Crack/Cocaine and Heroin Advance Directives: No Do you have a plan to hurt others: No Plan Physical Exam 2 Vital Signs: Vital Signs: Last Vital Signs Temp 98.7 F 03/29/24 01:15 Pulse 79 03/29/24 01:15 Resp 16 03/29/24 01:15 BP 122/70 03/29/24 01:15 Pulse Ox 98 03/29/24 01:15 O2 Del Method Room Air 03/29/24 01:15 BMI result Body Mass Index 20.9 VITAL SIGNS: Reviewed. GENERAL: Well developed, well nourished, in no acute distress. HEAD: Normocephalic/atraumatic EYES: PERRLA, EOMI LUNGS: Normal breath sounds. No adventitious sounds or accessory muscle use. SpO2<98> CARDIOVASCULAR: Regular rate and rhythm without noted murmurs ABDOMEN: Soft, non-tender, non-distended with bowel sounds. MUSCULOSKELETAL: No tenderness, deformities, or effusions noted on gross inspection. EXTREMITIES: No cyanosis, clubbing or edema. LEFT HAND: Significant tenderness and erythema noted to the dorsal carpal area near the base of the left thumb that extends to the palmar side, no fluctuance appreciated SKIN: Inspection of the skin reveals no rashes NEUROLOGIC: Alert and oriented x 4. Strength and sensation to light touch were grossly intact x 4. Medical Decision Making Medical Decision Making [facility] Narrative: 0255: 33-year-old male with history and clinical presentation, DDX: Suspected hand infection and no significant suspicion for fracture or dislocation. I reviewed all investigations and hematologic indices significant for leukocytosis/left shift and chronic normocytic anemia with a slight elevation of platelets likely reactive in nature. Chemistry indices negative for CANDICE/electrolyte or liver enzyme derangements, CRP-11.6. X-rays of hand and rest negative for fracture/dislocations. INTERVENTION: IV fluids, antibiotics. 0345: I discussed case with inpatient hospitalist who accepts admission. Differential Diagnosis Differential Diagnoses: The differential diagnosis associated with the presentation includes Please see the discussion above Admission/Observation Consideration of admission/observation: Escalation of care including admission/observation considered Please see the discussion above Consult Healthcare Provider Management of the patient was discussed with: Hospitalist Please see the discussion above Lab Data [facility] Lab Attestation statement: I reviewed the patient's lab results. Please see the discussion above 03/29/24 03:10 03/29/24 03:10 Labs: Lab Results 03/29/24 Range/Units 03:10 WBC 14.0 H (4.8-10.8) X10*3/uL RBC 4.08 L (4.60-5.80) X10*6/uL Hgb 11.1 L (14.0-18.0) g/dl Hct 34.1 L (42.0-52.0) % MCV 83.6 (80.0-98.0) fL MCH 27.2 (27.0-33.0) pg MCHC 32.6 (31.0-36.0) g/dl RDW 13.7 (11.0-16.0) % Plt Count 408 H (160-400) X10*3/uL MPV 10.1 (9.4-12.4) fL Immature Gran % (Auto) 0.3 (0.0-0.4) % Neut % (Auto) 73.9 H (45-73) % Lymph % (Auto) 16.2 L (20-40) % [place] % (Auto) 8.4 (2-11) % Eos % (Auto) 0.9 (0-4) % Baso % (Auto) 0.3 (0-2) % Lymph # (Auto) 2.3 (1.2-4.9) X10*3/uL [place] # (Auto) 1.2 (0.1-1.2) X10*3/uL Eos # (Auto) 0.1 (0.0-0.4) X10*3/uL Baso # (Auto) 0.0 (0.0-0.2) X10*3/uL Abs Immat Gran (auto) 0.04 H (0.00-0.03) X10*3/uL Absolute Neuts (auto) 10.4 H (2.0-8.3) x10*3/uL Absolute Nucleated RBC 0.000 (0.0-0.012) X10*3/uL Nucleated RBC % (auto) 0.0 (0.0-0.2) /100WBC Sodium 140 (135-145) mmol/L Potassium 3.8 (3.3-5.1) mmol/L Chloride 103 (96-108) mmol/L Carbon Dioxide 25 (22-29) mmol/L Anion Gap 16 (12-20) BUN 21 H (9-16) mg/dL Creatinine 0.86 (0.5-1.4) mg/dL Estim Creat Clear Calc 122.7 Estimated GFR > 60 Random Glucose 103 (60-115) mg/dL Lactic Acid 0.9 (0.5-2.0) mmol/L Calcium 9.7 D (8.4-10.2) mg/dL Total Bilirubin 0.4 (0.0-1.0) mg/dL AST 28 (5-37) U/L ALT 38 (0-40) U/L Alkaline Phosphatase 71 (39-117) U/L C-Reactive Protein 11.26 H (< or = 0.50) mg/dL Total Protein 8.9 H (6.5-8.0) g/dL Albumin 4.3 (3.5-5.0) g/dL Radiology Impression Discussion of test interpretation with radiology: I have reviewed the radiologist's reading. Radiologist Impression: Please see the discussion above External Record Review External record reviewed: Outpatient record, Prior outpatient labs and Prior outpatient radiology Social Determinants Patient?s care significantly limited by Social Determinants of Health including: Alcoholism and drug addiction in family Critical Care Time Critical Care Time Critical Care Time: Yes Total Critical Care Time: 45 Attestation: I personally attest to this time spent taking care of the patient. Discharge Plan Discharge Clinical Impression: Cellulitis of hand Patient Disposition: Admitted As Inpatient Prescriptions: No Action No Known Home Meds Print Language: Kazakh
[2024-03-29 03:18] LABS: Basophils Percent Auto 0.3 % (0-2); Eosinophils Absolute Auto 0.1 X10*3/uL (0.0-0.4); Eosinophils Percent Auto 0.9 % (0-4); Hematocrit 34.1 % (42.0-52.0); Hemoglobin 11.1 g/dl (14.0-18.0); Imm Gran Abs Auto 0.04 X10*3/uL (0.00-0.03); Imm Gran Pct Auto 0.3 % (0.0-0.4); Lymphocytes Absolute Auto 2.3 X10*3/uL (1.2-4.9); Lymphocytes Percent Auto 16.2 % (20-40); MANUAL DIFF FLAG NO; Mean Corpuscular HGB Conc 32.6 g/dl (31.0-36.0); Mean Corpuscular Hemoglobin 27.2 pg (27.0-33.0); Mean Corpuscular Volume 83.6 fL (80.0-98.0); Mean Platelet Volume 10.1 fL (9.4-12.4); Monocytes Absolute Auto 1.2 X10*3/uL (0.1-1.2); Monocytes Percent Auto 8.4 % (2-11); Neutrophils Absolute Auto 10.4 x10*3/uL (2.0-8.3); Neutrophils Percent Auto 73.9 % (45-73); Platelet Count 408 X10*3/uL (160-400); Red Blood Count 4.08 X10*6/uL (4.60-5.80); Red Cell Distribution Width 13.7 % (11.0-16.0)
[2024-03-29 03:31] LABS: Lactic Acid 0.9 mmol/L (0.5-2.0)
[2024-03-29 03:35] LABS: Alanine Aminotransferase 38 U/L (0-40); Albumin Level 4.3 g/dL (3.5-5.0); Alkaline Phosphatase 71 U/L (39-117); Anion Gap 16 (12-20); Aspartate Amino Transferase 28 U/L (5-37); Bilirubin Total 0.4 mg/dL (0.0-1.0); Blood Urea Nitrogen 21 mg/dL (9-16); C Reactive Protein 11.26 mg/dL (< or = 0.50); Calcium 9.7 mg/dL (8.4-10.2); Carbon Dioxide 25 mmol/L (22-29); Chloride 103 mmol/L (96-108); Creatinine Clr Calc Pharmacy 122.7; Estimated Glomerular Filt Rate > 60; Glucose Random 103 mg/dL (60-115); Potassium 3.8 mmol/L (3.3-5.1); Sodium 140 mmol/L (135-145); Total Protein 8.9 g/dL (6.5-8.0)
[2024-03-29] MEDS: 0.9 % Sodium Chloride 1,000 ML 999 ML IV (04:00)
[2024-03-29] MEDS: Piperacillin Sodium/Tazobactam 3.375 GM in 0.9 % Sodium Chloride 50 ML IV (04:04)
--- NOTE | 2024-03-29 04:25 | PC.NURSE ---
Dr. Cardenas aware of pain.
[2024-03-29] MEDS: vancomycin HCL 1,000 MG, vancomycin HCL 750 MG in 0.9 % Sodium Chloride 500 ML 267.5 MG IV (05:36)
[2024-03-29] MEDS: oxyCODONE HCl Immed Release 5 MG TABLET PO ×3 (05:38→23:41)
[2024-03-29] MEDS: diphenhydrAMINE HCL 50 MG/ML VIAL 25 MG IVPUSH (05:47)
--- NOTE | 2024-03-29 05:48 | PC.NURSE ---
0501 pt reported itching to R. forearm above iv site. red bumps/hives noted to L. forearm. no other areas affected. Vanco stopped. ivf infusing. Dr. Cardenas notified. IV Benadryl given per jan. resp even and unlabored airway patent. vss. pt denies difficulty breathing. lung sounds cta.
--- NOTE | 2024-03-29 06:04 | P.HPHOSP_ITS ---
History of Present Illness Date of Service: 03/29/24 Chief Complaint: Hand swelling This is a 33-year-old male with pertinent history of IV drug use disorder who presents to the emergency department for concerns of hand infection. Of note, patient was admitted on 02/05 for sepsis due to cellulitis and abscess of the left hand. He was initiated on empiric IV antibiotics with plans for washout by Orthopedic surgery. Patient left AMA on the day of admission on 02/05 before Orthopedic surgery could perform I&D. Previous wound culture with MRSA. Patient presents today with worsening of the left hand swelling, redness and pain. Patient states he is unable to flex and extend his hand due to the pain. No fever, chills, chest discomfort, palpitations, shortness of breath, abdominal pain, changes in urinary or bowel habits. States he does not inject into his left hand In the emergency department, patient was initiated on empiric IV antibiotics Review of Systems 2 Constitutional: Constitutional: Reports no additional constitutional complaints Cardiovascular: Cardiovascular: Reports no additional cardiovascular complaints Respiratory: Respiratory: Reports no additional respiratory complaints Gastrointestinal: Gastrointestinal: Reports no additional gastrointestinal complaints Genitourinary: Genitourinary: Reports no additional male genitourinary complaints Musculoskeletal: Musculoskeletal: Reports arthralgias and Reports joint swelling [facility] Medical History Intravenous drug abuse Abscess of hand Pertinent family history: No family history of early CAD Social History Household Members: None Housing: Unknown / Unable to assess Do you presently have visiting nurse or other home services: No Alcohol intake: former Patient Tobacco Use Status: Current everyday Tobacco user Substance Use Type: Heroin, IV Drugs and Marijuana Meds Allergies Allergy/AdvReac Type Severity Reaction Status Date / Time No Known Allergies Allergy Verified 03/29/24 01:18 Active Medications: Current Medications Pharmacy Consult (Consult Rx Vancomycin Dosing) 1 each MISCELLANE DAILY PRN PRN Reason: Consult order Home Medications ?Medication ?Instructions ?Recorded ?Confirmed ?Last Taken ?Type No Known Home Meds 02/06/24 02/06/24 Unknown History Physical Exam 2 Vital Signs and Narrative: Vital Signs: Last Vital Signs Temp 98.1 F 03/29/24 05:45 Pulse 67 03/29/24 05:45 Resp 20 03/29/24 05:45 BP 117/66 03/29/24 05:45 Pulse Ox 99 03/29/24 05:45 O2 Del Method Room Air 03/29/24 05:45 BMI result Body Mass Index 20.9 Middle-aged male lying in bed in no distress Neck supple, no JVD Regular rate and rhythm, S1-S2 heard Regular breath sounds bilaterally, no wheezing or crackles appreciated Abdomen soft nontender, no guarding, no rigidity Patient is awake, alert and oriented to self, place, time and person ; no focal motor deficit Psych: Normal mood Extremity: Left hand with erythema, warmth and swelling with difficulty in hand movements Results Labs 03/29/24 03:10 03/29/24 03:10 Labs: Laboratory Results - last 24 hr 03/29/24 03:10 MCV 83.6 MCH 27.2 MCHC 32.6 RDW 13.7 Plt Count 408 H MPV 10.1 Immature Gran % (Auto) 0.3 Neut % (Auto) 73.9 H Lymph % (Auto) 16.2 L [place] % (Auto) 8.4 Eos % (Auto) 0.9 Baso % (Auto) 0.3 Lymph # (Auto) 2.3 [place] # (Auto) 1.2 Eos # (Auto) 0.1 Baso # (Auto) 0.0 Abs Immat Gran (auto) 0.04 H Absolute Neuts (auto) 10.4 H Absolute Nucleated RBC 0.000 Nucleated RBC % (auto) 0.0 Anion Gap 16 Estim Creat Clear Calc 122.7 Estimated GFR > 60 Random Glucose 103 Lactic Acid 0.9 Calcium 9.7 D Total Bilirubin 0.4 AST 28 ALT 38 Alkaline Phosphatase 71 C-Reactive Protein 11.26 H Total Protein 8.9 H Albumin 4.3 Imaging Radiologist's Impressions: Impressions Hand/Wrist X-Ray 03/29/24 02:01 IMPRESSION: Soft tissue swelling without acute osseous findings. Assessment and Plan (1) Cellulitis of hand: Status: Acute Plan This is a 33-year-old male with pertinent history of IV drug use disorder who presents to the emergency department for concerns of hand infection. #. Sepsis due to Cellulitis of left hand with concerns for abscess: Continue empiric IV antibiotics. Resuscitated with IV crystalloids. Lactic acid and blood culture obtained Consulting Orthopedic surgery. Blood cultures obtained #. IV drug use disorder: Consulting Addiction Team. Monitor for withdrawal DVT prophylaxis: None. Patient is ambulatory Full code Admit as inpatient and will require two night minimum hospital stay for IV antibiotics (as above), which is not possible in a lesser acute setting. Specialist consult pending Quality Stroke Does the patient have a stroke diagnosis?: No VTE Prior VTE?: No VTE Risk Level:: Medical - low VTE Device Contraindication: Treatment Not Indicated VTE Drug Contraindication: Treatment Not Indicated
--- NOTE | 2024-03-29 06:13 | PC.NURSE ---
per Dr. Dos Santos restart IV Vanco infusion at half rate as last time pt tolerated with benadryl and slow rate.
[2024-03-29] MEDS: iohexoL 350 MG/ML 100 ML INFUS..BTL 85 ML IV (06:59)
--- NOTE | 2024-03-29 07:20 | PC.NURSE ---
Pt noted to be in obviously pain, holding left arm, unable to get comfortable. Provider alerted and orders to give toradol for pain control.
[2024-03-29] MEDS: Ketorolac Tromethamine 30 MG/ML VIAL IVPUSH ×2 (07:44→16:32)
[2024-03-29] MEDS: 0.9 % Sodium Chloride Flush 3 ML SYRINGE IVFLUSH ×3 (07:45→23:13)
--- NOTE | 2024-03-29 07:45 | PHA.PROG ---
Admission Date/Time: March 29, 2024 06:03 Indication: Skin & skin structure infection Weight in k.7 kg Adjusted body weight in K.62 Serum Creatinine - Last 168 Hours 03/29/24 03:10 Creatinine 0.86 Estimated CrCl and GFR - Last 168 Hours 03/29/24 03:10 Estim Creat Clear Calc 122.7 Estimated GFR > 60 Vancomycin Loading Dose: 1,750 MG Current Vancomycin Dosing Regimen: 1,000 Q12H Vancomycin Monitoring using AUC goal of 400 - 600 range with trough as surrogate marker: 448 mg/hr, predicted trough 13.2 mg/L Date and Time for next Vancomycin Level to be drawn: 03/30 @16:00 Pharmacist Comments on Vancomycin Plan: Vancomycin dosing will take advantage of Hooked as a clinical decision support tool that uses Bayesian modeling to calculate individual patient's pharmacokinetic parameters and forecast the patient's drug concentration time course with the target goal AUC 24 range of 400 - 600 mg/L/hr.
--- NOTE | 2024-03-29 07:53 | PC.NURSE ---
Security at bedside doing belongings check.
[2024-03-29] MEDS: Piperacillin Sodium/Tazobactam 4.5 GM in 0.9 % Sodium Chloride 100 ML IV ×3 (10:23→23:12)
--- NOTE | 2024-03-29 10:28 | PM.CNOR ---
History of Present Illness HPI Consult date: 03/29/24 Chief complaint: hand infection Narrative: 33-year-old gentleman admitted to the medical service for left hand and wrist cellulitis. He is an IV drug user with a history of heroin use, last time he used was 15:00 yesterday. He states over the last 4 days he has noticed worsening pain and swelling in the left wrist which is limiting his ability to use the hand. He denies injecting into this area. Review of Systems Review of Systems: Yes all other systems are reviewed and are negative PMFSH Past Medical History Medical History Intravenous drug abuse Abscess of hand Social History Social History Household Members: None Housing: Unknown / Unable to assess Do you presently have visiting nurse or other home services: No Alcohol intake: former Patient Tobacco Use Status: Current everyday Tobacco user Smoked in Last 30 Days: Yes Use of substances other than those prescribed or required for medical reasons: Yes Substance Use Type: Heroin, IV Drugs and Marijuana Advance Directives: No Do you have a plan to hurt others: No Plan Nutrition Risks: No Nutritional Risk Meds Allergies Allergy/AdvReac Type Severity Reaction Status Date / Time No Known Allergies Allergy Verified 03/29/24 01:18 Active Medications: Current Medications Acetaminophen (Acetaminophen 325 Mg Tablet) 650 mg PO Q6H PRN PRN Reason: Pain, Mild (Pain Scale 1-3) Piperacillin Sod/Tazobactam (Sod 4.5 gm/ Sodium Chloride) 100 mls @ 200 mls/hr IV Q6H PORSCHE Last Admin: 03/29/24 10:23 Dose: 200 mls/hr Vancomycin HCl 1,000 mg/ (Sodium Chloride) 270 mls @ 270 mls/hr IV Q12H PORSCHE Ketorolac Tromethamine (Ketorolac Tromethamine 30 Mg/Ml Vial) 30 mg IVPUSH Q6H PRN PRN Reason: Pain, Severe (Pain Scale 7-10) Last Admin: 03/29/24 07:44 Dose: 30 mg Melatonin (Melatonin 3 Mg Tablet) 6 mg PO BEDTIME PRN PRN Reason: Insomnia Ondansetron HCl (Ondansetron Hcl 4 Mg/2 Ml Vial) 4 mg IVPUSH Q8H PRN PRN Reason: Nausea and Vomiting Pharmacy Consult (Consult Rx Vancomycin Dosing) 1 each MISCELLANE DAILY PRN PRN Reason: Consult order Sodium Chloride (0.9 % Sodium Chloride Flush 3 Ml Syringe) 3 ml IVFLUSH QSHIFT [facility] Last Admin: 03/29/24 07:45 Dose: 3 ml Home Medications ?Medication ?Instructions ?Recorded ?Confirmed ?Last Taken ?Type No Known Home Meds 02/06/24 02/06/24 Unknown History Physical Exam Vital Signs: Vital Signs: Last Vital Signs Temp 98.1 F 03/29/24 05:45 Pulse 67 03/29/24 05:45 Resp 20 03/29/24 05:45 BP 117/66 03/29/24 05:45 Pulse Ox 99 03/29/24 05:45 O2 Del Method Room Air 03/29/24 05:45 BMI result Body Mass Index 20.9 Const: General: cooperative, healthy appearing, comfortable and no acute distress Extrem: Other: Left hand is normal to inspection he does have some he will track monzon on the dorsum of the hand. There is some significant swelling and redness around the dorsum of the wrist. No extension into the dorsal or palmar aspect of the hand. He has pain with wrist flexion and extension. There is also discomfort with an attempted axial load the wrist. No abscess formation at this time. He does have good pulses and sensation is intact. Results Labs 03/29/24 03:10 03/29/24 03:10 Labs: Abnormal lab results 03/29/24 Range/Units 03:10 WBC 14.0 H (4.8-10.8) X10*3/uL RBC 4.08 L (4.60-5.80) X10*6/uL Hgb 11.1 L (14.0-18.0) g/dl Hct 34.1 L (42.0-52.0) % Plt Count 408 H (160-400) X10*3/uL Neut % (Auto) 73.9 H (45-73) % Lymph % (Auto) 16.2 L (20-40) % Abs Immat Gran (auto) 0.04 H (0.00-0.03) X10*3/uL Absolute Neuts (auto) 10.4 H (2.0-8.3) x10*3/uL BUN 21 H (9-16) mg/dL C-Reactive Protein 11.26 H (< or = 0.50) mg/dL Total Protein 8.9 H (6.5-8.0) g/dL H & H 03/29/24 Range/Units 03:10 Hgb 11.1 L (14.0-18.0) g/dl Hct 34.1 L (42.0-52.0) % All other labs normal. Assessment and Plan (1) Cellulitis: Status: Acute Plan I discussed the case with Dr. Camilo. The plan is to keep the patient NPO at this time. He did have breakfast this morning when I saw him at 08:00 there was a plate of 1/2 feet in scrambled eggs on his bed. A CT scan of the left wrist has been ordered to determine if joint is involved. Will continue to follow depending on results will plan for either continued IV antibiotics versus surgical intervention. Procedures Date of Service Date of Service: 03/29/24
--- NOTE | 2024-03-29 13:24 | PHA.MEDREC ---
Pharmacy Consult ? Medication Reconciliation Pharmacy has completed the medication reconciliation, pt reported taking no medications at home.
--- NOTE | 2024-03-29 13:32 | PM.EVENT ---
Event Note Date of Service: 03/29/24 Event Note: Pt was admitted this morning with right hand abscess and cellulitis in the setting of drug use, CT show loculated fluid. Ortho to perform I and D tomorrow. Continue IV Zosyn and Vanco, follow culture. Oxycodone and Toradol for pain, clonidine for withdrawal symptoms and addiction med to consider methadone. He has signed AMA in the past for similar presentation Time Spent With Patient Time: Total time managing care of this patient today ____ minutes.
--- NOTE | 2024-03-29 14:13 | MHC.RECOVRN ---
Met with pt in [id number] after consult placed to Addiction Medicine for polysubstance use. Pt had presented to the ED reporting left hand/wrist pain, swelling, redness, warm to touch x 4 days. Upon evaluation, pt admitted for sepsis due to cellulitis of left hand with concern for abscess. Pt laying in bed, upside down, when t/w approached. Pt visibly uncomfortable. Pt reports feeling awful, reporting withdrawal symptoms including restlessness, diaphoresis, body aches. Pt reports using heroin/fentanyl, 1/2 pack daily, IV. Pt has utilized methadone in the past in [facility], has not been to an OTP. Pt would like methadone to address withdrawal symptoms. Pt denies other questions or concerns for t/w at this time. Discussed with Serene Dong APRN.
[2024-03-29] MEDS: methADONE HCl 20 MG/2 ML ORAL.CONC 30 MG PO (14:17)
--- NOTE | 2024-03-29 16:01 | MHC.RECOVRN ---
Met with pt to follow up regarding methadone initiation. Pt continues to be restless, unable to stay still. Pt reports withdrawal symptoms including restlessness and anxiety. Pt reports pain in hand. Pt would like to continue methadone titration and be connected to [facility]. Pt denies other questions or concerns for t/w. Discussed with Serene Dong APRN.
[2024-03-29] MEDS: vancomycin HCL 1,000 MG in 0.9 % Sodium Chloride 250 ML 270 MG IV (18:51)
[2024-03-29] MEDS: methADONE HCl 20 MG/2 ML ORAL.CONC 10 MG PO (18:52)
[2024-03-29] MEDS: cloNIDine HCL 0.1 MG TABLET PO (23:41)
[2024-03-29] MEDS: Melatonin 3 MG TABLET 6 MG PO (23:41)
[2024-03-29] MEDS: Acetaminophen 325 MG TABLET 650 MG PO (23:42)
[2024-03-30] MEDS: Ketorolac Tromethamine 30 MG/ML VIAL IVPUSH (02:59)
[2024-03-30] MEDS: ondansetron HCL 4 MG/2 ML VIAL IVPUSH (02:59)
[2024-03-30] MEDS: methADONE HCl 10 MG TABLET PO (03:16)
[2024-03-30 04:00] VITALS: BP 106/61; PULSE 57; RESP 16; TEMP 36; O2SAT 97
[2024-03-30] MEDS: Piperacillin Sodium/Tazobactam 4.5 GM in 0.9 % Sodium Chloride 100 ML IV (04:59)
[2024-03-30] MEDS: vancomycin HCL 1,000 MG in 0.9 % Sodium Chloride 250 ML 270 MG IV (05:38)
[2024-03-30 07:44] VITALS: BP 92/50; PULSE 52; RESP 12; TEMP 36; O2SAT 97
[2024-03-30] MEDS: 0.9 % Sodium Chloride Flush 3 ML SYRINGE IVFLUSH (07:59)
[2024-03-30] MEDS: Acetaminophen 325 MG TABLET 650 MG PO (08:00)
[2024-03-30] MEDS: oxyCODONE HCl Immed Release 5 MG TABLET PO (08:00)
--- NOTE | 2024-03-30 08:36 | PC.NURSE ---
0800- Pt askinf for pain medication stating pain to hand. Po oxy and tylenol given. 0830- Dr Barros in to see pt for morning rounds. Pt pacing in room stating he is leaving AMA. States This is the second time I've been here and feel like shit This RN offered morning methadone but pt states Give me the AMA papers while cursing at this RN and continuously pacing in room. JUAN blankenship signed and witnessed
--- NOTE | 2024-03-30 08:47 | MHC.CM.PN ---
Patient left AMA prior to CM assessment.
--- NOTE | 2024-03-30 08:59 | P.DS_ITS ---
DS: Providers Provider Date of Service: 03/30/24 Date of admission: 03/29/24 06:03 Primary care physician: Unknown Physician Consults: 03/29/24 06:25 Addiction Medicine Routine Consulting Provider: Addiction Covering Reason for consultation: Polysubstance use disorder Consult to Orthopedics Routine Consulting Provider: [facility] [place] [facility] Reason for consultation: Hand abscess 03/29/24 23:33 Consult to Wound Care Routine Reason for consultation: cellulitis to left hand. DS: Diagnosis Discharge Diagnosis (1) Cellulitis: Status: Acute DS: Summary Hospital Course Hospital Course: Chief Complaint: Hand swelling This is a 33-year-old male with pertinent history of IV drug use disorder who presents to the emergency department for concerns of hand infection. Of note, patient was admitted on 02/05 for sepsis due to cellulitis and abscess of the left hand. He was initiated on empiric IV antibiotics with plans for washout by Orthopedic surgery. Patient left AMA on the day of admission on 02/05 before Orthopedic surgery could perform I&D. Previous wound culture with MRSA. Patient presents today with worsening of the left hand swelling, redness and pain. Patient states he is unable to flex and extend his hand due to the pain. No fever, chills, chest discomfort, palpitations, shortness of breath, abdominal pain, changes in urinary or bowel habits. States he does not inject into his left hand In the emergency department, patient was initiated on empiric IV antibiotics hospital course: He was admitted and administered IV antibiotics. The hand surgeon assessed him, planning to proceed to the operating room for irrigation and debridement. However, just before the operation, he opted to leave against medical advice (AMA), citing a lack of methadone. According to RN, his methadone could have been administered at any time, and he hadn't requested it earlier. Even when offered immediately, he declined. I advised him against leaving AMA, stressing the potential for his infection to worsen, leading to severe sepsis, limb loss, or even . He acknowledged this risk, echoing it back in his own words. As an alternative to intravenous antibiotics, I proposed oral Do xycycline, which he requested to be sent to his pharmacy. RN and ortho PA was present during the conversation final diagnoses: sepsis cellulitis of the hand with possible abscess opiate use disorder Time Attestation Discharge Coordination Time (in mins): 30 Quality: Safe Use of Opioids Does Pt have an Active Cancer Diagnosis on the Problem List?: No Quality: Stroke Does the patient have a stroke diagnosis?: No Physical Exam Vital Signs: Vital Signs: Last Vital Signs Temp 96.8 F 03/30/24 07:44 Pulse 52 03/30/24 07:44 Resp 12 03/30/24 07:44 BP 92/50 L 03/30/24 07:44 Pulse Ox 97 03/30/24 07:44 O2 Del Method Room Air 03/30/24 07:44 BMI result Body Mass Index 20.5 General: AO X 3, no acute distress Resp: CTA bilateral CVS: S1,S2,RRR GI: +BS, NT, no distention Skin: swelling of the hand unchanged Neuro: motor grossly intact Psych: appropriate affect DS: Data Data Completed and Pending Labs on day of discharge: Preliminary micro results at discharge 03/29/24 03:10 Blood Culture - Preliminary Blood - Venous No growth after 24 hours. 03/29/24 03:10 Blood Culture - Preliminary Blood - Venous No growth after 24 hours. Discharge Plan Discharge Anticipated Discharge Date/Time: 03/30/24 08:53 Patient Disposition: Left Against Medical Advice Discharge Diagnosis: Cellulitis of the hand Referrals: Physician,Unknown J [Primary Care Provider] - 1 Week Discharge Medications: New doxycycline hyclate 100 mg tablet 100 mg PO BID 7 Days Qty: 14 0RF Discharge Orders: Discharge Order (Routine); Ordered 03/30/24 Ordered By: Richi Barros Diet: Advance to usual diet Activity on Discharge: As tolerated Stand Alone Forms: Patient Portal Discharge page Print Language: Hungarian Care Plan Goals: resolution of infection Health Concerns: infection of the hand, cellulitis Plan of Treatment: take doxycycline 100 mg twice daily for 7 days and follow up with your Doctor in a week you understand that you are leaving against medical advise and assume full responsibility for your health, including the possibility of Assessment: see above
--- NOTE | 2024-03-30 09:54 | PM.PNORT ---
Subjective Subjective Date of Service: 03/30/24 Interval history: patient seen this morning for left wrist states he has pain wants to leave AMA because he feels sick Physical Exam Vital Signs: Vital Signs: Last Vital Signs Temp 96.8 F 03/30/24 07:44 Pulse 52 03/30/24 07:44 Resp 12 03/30/24 07:44 BP 92/50 L 03/30/24 07:44 Pulse Ox 97 03/30/24 07:44 O2 Del Method Room Air 03/30/24 07:44 BMI result Body Mass Index 20.5 Extrem: Other: left wrist less red and less swollen c/o pain with palpation no fluctulance no abscess formation he is able to flex and extend all digits nvi Procedures Date of Service Date of Service: 03/30/24 Progress Note: A&P Assessment and plan (1) Cellulitis of hand: Status: Acute Assessment and Plan: No evidence of joint infection based off CT scan he does have cellulitis and inflammation of the extensor tendons recommend continue IV abx no surgical intervention patient became irritated he is not having surgery wants his methadone states he is leaving AMA expressed importance of iv abx Dr Barros at bedside Time Spent With Patient Time: Total time managing care of this patient today ____ minutes. Quality Stroke Does the patient have a stroke diagnosis?: No VTE Prior VTE?: No VTE Risk Level:: Medical - low VTE Device Contraindication: Treatment Not Indicated VTE Drug Contraindication: Treatment Not Indicated
--- NOTE | 2024-03-30 12:05 | HO.WOUND ---
Patient left AMA prior to Inpatient Wound Nurse assessment.
== END 2024-03-30 08:30 | disposition left against medical advice (07) | DRG 720 ==
LOC: HO.ED 03:48 → HO.EDOVER 06:21 → HO.S3 19:58
PROVIDERS: Admitting Provider Student in an Organized Health Care Education/Training Program; Emergency Provider Student in an Organized Health Care Education/Training Program; Visit Provider Internal Medicine
DX: A41.9 Sepsis, unspecified organism (principal); F11.90 Opioid use, unspecified, uncomplicated; L02.511 Cutaneous abscess of right hand; F17.210 Nicotine dependence, cigarettes, uncomplicated; L03.114 Cellulitis of left upper limb; Z71.6 Tobacco abuse counseling
CPT/HCPCS: 36415; 73110; 73130; 73201; 80053; 83605; 85025; 86140; 87040; 99221; 99285; J1200; J1885; J2405; J2543; J3370; Q9967

== ENCOUNTER → 2024-03-29 06:03 | Outpatient (BNV) | payer OTHER, SELFPAY | PROVIDERS: Admitting Provider Student in an Organized Health Care Education/Training Program; Emergency Provider Student in an Organized Health Care Education/Training Program; Visit Provider Student in an Organized Health Care Education/Training Program | DX: L03.113 Cellulitis of right upper limb (principal) | CPT/HCPCS: 99222; 99239; 99499 ==

== ENCOUNTER → 2024-03-29 06:03 | Outpatient (BNV) | payer OTHER, SELFPAY | PROVIDERS: Admitting Provider Student in an Organized Health Care Education/Training Program; Emergency Provider Student in an Organized Health Care Education/Training Program; Visit Provider Physician Assistant | DX: L03.119 Cellulitis of unspecified part of limb (principal) | CPT/HCPCS: 99222; 99232 ==

== ENCOUNTER 2024-09-21 00:52 | Emergency (ER) | payer OTHER, SELFPAY ==
[2024-09-21 01:02] VITALS: BP 110/72; BP 138/98; PULSE 58; PULSE 60; RESP 14; TEMP 37; O2SAT 98; O2SAT 99; BMI 18.5
[2024-09-21] MEDS: cloNIDine HCL 0.1 MG TABLET PO (03:29)
--- NOTE | 2024-09-21 03:39 | PC.NURSE ---
pt walking around ED, reporting he is withdrawing and needs medication. pt medicated per MAR. given a sandwich and radha brett per request
[2024-09-21 03:41] LABS: MANUAL DIFF FLAG NO
[2024-09-21 03:42] LABS: Basophils Absolute Auto 0.1 X10*3/uL (0.0-0.2); Basophils Percent Auto 0.6 % (0-2); Eosinophils Absolute Auto 0.2 X10*3/uL (0.0-0.4); Eosinophils Percent Auto 1.9 % (0-4); Hematocrit 33.8 % (42.0-52.0); Hemoglobin 10.9 g/dl (14.0-18.0); Imm Gran Abs Auto 0.04 X10*3/uL (0.00-0.03); Imm Gran Pct Auto 0.4 % (0.0-0.4); Lymphocytes Absolute Auto 1.9 X10*3/uL (1.2-4.9); Mean Corpuscular HGB Conc 32.2 g/dl (31.0-36.0); Mean Corpuscular Hemoglobin 26.4 pg (27.0-33.0); Mean Corpuscular Volume 81.8 fL (80.0-98.0); Mean Platelet Volume 10.2 fL (9.4-12.4); Monocytes Absolute Auto 0.9 X10*3/uL (0.1-1.2); Monocytes Percent Auto 8.1 % (2-11); Neutrophils Absolute Auto 7.7 x10*3/uL (2.0-8.3); Platelet Count 270 X10*3/uL (160-400); Red Blood Count 4.13 X10*6/uL (4.60-5.80); Red Cell Distribution Width 14.8 % (11.0-16.0); White Blood Count 10.8 X10*3/uL (4.8-10.8)
[2024-09-21 03:56] LABS: Alanine Aminotransferase 53 U/L (0-40); Alkaline Phosphatase 89 U/L (39-117); Anion Gap 13 (12-20); Aspartate Amino Transferase 44 U/L (5-37); Bilirubin Total 0.3 mg/dL (0.0-1.0); Blood Urea Nitrogen 20 mg/dL (9-16); Calcium 9.7 mg/dL (8.4-10.2); Carbon Dioxide 25 mmol/L (22-29); Chloride 106 mmol/L (96-108); Creatinine Clr Calc Pharmacy 118.7; Estimated Glomerular Filt Rate > 60; Ethanol < 10 mg/dL; Glucose Random 101 mg/dL (60-115); Potassium 4.3 mmol/L (3.3-5.1); Sodium 140 mmol/L (135-145); Total Protein 8.1 g/dL (6.5-8.0)
--- NOTE | 2024-09-21 04:50 | ED.GENADULT ---
HPI - General Adult General Chief complaint: ETOH/Substance Use Stated complaint: detox used at 12 hours ago Time Seen by Provider: 09/21/24 04:50 Source: patient and EMS Mode of arrival: EMS Limitations: no limitations History of Present Illness ED Provider: Dr. Martinez HPI narrative: Patient last shot up at noon yesterday, he wants help, would like to go to detox Onset (ago): hour(s) Related Data Previous Rx's ?Medication ?Instructions ?Recorded doxycycline hyclate 100 mg tablet 100 mg PO BID 7 days #14 tabs 03/30/24 Allergies Allergy/AdvReac Type Severity Reaction Status Date / Time No Known Allergies Allergy Verified 09/21/24 01:04 Review of Systems Review of Systems: Yes all other systems are reviewed and are negative Neurologic: Denies Sensory deficit (Neuro) PMFSH Past Medical History Medical History Intravenous drug abuse Abscess of hand Social History Social History Household Members: Spouse Housing: Other Housing Other:: penitentiary Do you presently have visiting nurse or other home services: No Alcohol intake: former Patient Tobacco Use Status: Current everyday Tobacco user Tobacco use type: Cigarette Cigarette Packs Per Day: 1 Cigarettes Per Day: 20.0 Smoked in Last 30 Days: Yes Second Hand Smoke Exposure: Yes Use of substances other than those prescribed or required for medical reasons: Yes Substance Use Type: Crack/Cocaine and Heroin Substance Use Frequency: Daily Last Used Substance: Hours (ago) Advance Directives: No Advance Directives Information Provided: No Do you have a plan to hurt others: No Plan Physical Exam ED Vital Signs: Vital Signs - 24 hr 09/21/24 01:02 09/21/24 05:47 Temperature 98.6 F Pulse Rate 58 58 Respiratory Rate 14 18 Blood Pressure 110/72 137/66 Pulse Oximetry 99 99 Oxygen Delivery Method Room Air Room Air BMI result Body Mass Index 18.5 Const Other: thin cachectic male, unkept Orientation/consciousness: oriented to person and patient oriented x3 Limitations: no limitations HENMT Head: Yes normal to inspection Ears: external ears normal General nose exam: Normal external nose present Mouth: Normal oral and palatal mucosa present and oropharynx normal Throat: Yes posterior oropharynx normal Eyes General: appearance normal, both eyes and all related structures Neck Neck: Yes normal visual inspection Chest Chest palpation & inspection: normal inspection of the chest Resp Auscultation: clear to auscultation bilaterally Cardio Jugular venous distension: no JVD Rate: regular rate Rhythm: regular rhythm Heart sounds: S1 normal heart sound present and S2 normal heart sound present GI Inspection: Yes normal to inspection Palpation (GI): Soft to palpation, nontender and No hepatosplenomegaly present Auscultation: normal bowel sounds General: Yes no CVA tenderness Back/Spine/Pelvis Back: no CVA tenderness Skin General skin exam: no rashes or lesions noted Neuro General: oriented to person and patient oriented x3 Cranial nerves: Yes CN's II-XII intact bilaterally Motor exam (neuro): 5/5 motor strength present throughout Sensory Exam: No Sensory deficit (Neuro) Extrem General: Yes normal to inspection Psych Appearance: grossly normal Course Reevaluation(s) Reevaluation #1: physician observation starts now, patient to be evaluated by the care team for detox. Currently resting comfortably Time: 07:13 Medications Administered Discontinued Medications Generic Name Dose Route Start Last Admin Trade Name Perez PRN Reason Stop Dose Admin Clonidine HCl 0.1 mg 09/21/24 03:25 09/21/24 03:29 Clonidine Hcl 0.1 Mg Tablet PO 09/21/24 03:26 0.1 mg ONCE ONE Administration Protocol Methadone HCl 10 mg 09/21/24 05:10 09/21/24 05:40 Methadone Hcl 10 Mg Tablet PO 09/21/24 05:11 10 mg ONCE ONE Administration Medical Decision Making Differential Diagnosis Differential Diagnoses: The differential diagnosis associated with the presentation includes (polysubstance abuse, drug and alcohol withdrawal) Admission/Observation Consideration of admission/observation: Escalation of care including admission/observation considered (upon arrival patient considered for admission) Consult Healthcare Provider Management of the patient was discussed with: Behavioral Health Provider Lab Data 09/21/24 03:37 09/21/24 03:37 Labs: Lab Results 09/21/24 09/21/24 Range/Units 03:37 04:59 WBC 10.8 (4.8-10.8) X10*3/uL RBC 4.13 L (4.60-5.80) X10*6/uL Hgb 10.9 L (14.0-18.0) g/dl Hct 33.8 L (42.0-52.0) % MCV 81.8 (80.0-98.0) fL MCH 26.4 L (27.0-33.0) pg MCHC 32.2 (31.0-36.0) g/dl RDW 14.8 (11.0-16.0) % Plt Count 270 D (160-400) X10*3/uL MPV 10.2 (9.4-12.4) fL Immature Gran % (Auto) 0.4 (0.0-0.4) % Neut % (Auto) 71.0 (45-73) % Lymph % (Auto) 18.0 L (20-40) % Tate % (Auto) 8.1 (2-11) % Eos % (Auto) 1.9 (0-4) % Baso % (Auto) 0.6 (0-2) % Lymph # (Auto) 1.9 (1.2-4.9) X10*3/uL Tate # (Auto) 0.9 (0.1-1.2) X10*3/uL Eos # (Auto) 0.2 (0.0-0.4) X10*3/uL Baso # (Auto) 0.1 (0.0-0.2) X10*3/uL Abs Immat Gran (auto) 0.04 H (0.00-0.03) X10*3/uL Absolute Neuts (auto) 7.7 (2.0-8.3) x10*3/uL Absolute Nucleated RBC 0.000 (0.0-0.012) X10*3/uL Nucleated RBC % (auto) 0.0 (0.0-0.2) /100WBC Sodium 140 (135-145) mmol/L Potassium 4.3 (3.3-5.1) mmol/L Chloride 106 (96-108) mmol/L Carbon Dioxide 25 (22-29) mmol/L Anion Gap 13 (12-20) BUN 20 H (9-16) mg/dL Creatinine 0.78 (0.5-1.4) mg/dL Estim Creat Clear Calc 118.7 Estimated GFR > 60 Random Glucose 101 (60-115) mg/dL Calcium 9.7 (8.4-10.2) mg/dL Total Bilirubin 0.3 (0.0-1.0) mg/dL AST 44 H (5-37) U/L ALT 53 H (0-40) U/L Alkaline Phosphatase 89 (39-117) U/L Total Protein 8.1 H (6.5-8.0) g/dL Albumin 4.0 (3.5-5.0) g/dL Urine Color Yellow Urine Appearance Clear Urine pH 7.5 (5.0-9.0) Ur Specific [place] 1.015 (1.005-1.025) Urine Protein Negative (Neg-Trace) mg/dL Urine Glucose (UA) Negative (Negative) mg/dL Urine Ketones Negative (Negative) mg/dL Urine Blood Negative (Negative) Urine Nitrite Negative (Negative) Ur Leukocyte Esterase Negative (Negative) Urine RBC 0-2 (0-2) /HPF Urine WBC 0-5 (0-5) /HPF Ur Squamous Epith Cells 0-2 (0-2) /HPF Urine Bacteria None Seen (None Seen) Hyaline Casts 0-2 (0-2) /LPF Urine Opiates Screen Not Detected (Not Detect) Ur Buprenorphine Scrn Not Detected (Not Detect) ng/mL Ur Oxycodone Screen Not Detected (Not Detect) ng/mL Urine Methadone Screen Not Detected (Not Detect) ng/mL Urine Fentanyl Screen POSITIVE H (Not Detect) Ur Barbiturates Screen Not Detected (Not Detect) Ur Phencyclidine Scrn Not Detected (Not Detect) Ur Amphetamines Screen Not Detected (Not Detect) U Benzodiazepines Scrn Not Detected (Not Detect) Urine Cocaine Screen POSITIVE H (Not Detect) U Marijuana (THC) Screen POSITIVE H (Not Detect) Ethyl Alcohol < 10 mg/dL Independent Historian Clinical information obtained from an independent historian. History obtained from or confirmed by: EMS Social Determinants Patient?s care significantly limited by Social Determinants of Health including: Low income and Alcoholism and drug addiction in family Discharge Plan Discharge Clinical Impression: Polysubstance abuse, Alcohol withdrawal syndrome Patient Disposition: Still a Patient Prescriptions: No Action doxycycline hyclate 100 mg tablet 100 mg PO BID 7 Days Qty: 14 0RF Print Language: Taiwanese
[2024-09-21 05:08] LABS: Appearance Urine Clear; Color Urine Yellow; Glucose Urine UA Negative (Negative); Leukocyte Esterase Urine Negative (Negative); Nitrite Urine Negative (Negative); PH 7.5 (5.0-9.0); Specific Gravity - Urine 1.015 (1.005-1.025); Urine Blood Negative (Negative); Urine Ketones Negative (Negative); Urine Protein Negative (Neg-Trace)
[2024-09-21 05:11] LABS: Bacteria Urine None Seen (None Seen); Hyaline Casts Urine 0-2 /LPF (0-2); RBC Urine 0-2 /HPF (0-2); Squamous Epithelial Cell Urine 0-2 /HPF (0-2); WBC Urine 0-5 /HPF (0-5)
--- NOTE | 2024-09-21 05:21 | PC.NURSE ---
belongings in [place]
[2024-09-21 05:24] LABS: Amphetamine Screen Urine Not Detected (Not Detect); Barbiturates, Urine Not Detected (Not Detect); Benzodiazepines Screen Urine Not Detected (Not Detect); Buprenorphine Scr Not Detected (Not Detect); Cannabinoid Screen Urine POSITIVE (Not Detect); Cocaine Screen Urine POSITIVE (Not Detect); Fentanyl, urine POSITIVE (Not Detect); Methadone Screen, Urine Not Detected (Not Detect); Opiate Screen Urine Not Detected (Not Detect); Oxycodone Screen Urine Not Detected (Not Detect); Phencyclidine Screen Urine Not Detected (Not Detect)
[2024-09-21] MEDS: methADONE HCl 10 MG TABLET PO ×2 (05:40→07:25)
[2024-09-21 05:47] VITALS: BP 137/66; PULSE 58; RESP 18; O2SAT 99
[2024-09-21] MEDS: LORazepam 1 MG TABLET 2 MG PO (07:32)
--- NOTE | 2024-09-21 07:43 | PC.NURSE ---
report received from previous rn, patient pacing around hallway of department, visibly anxious. requesting more methadone, provider made aware, patient stating he doesnt know how much longer he can wait, he is detoxing and he knows he can just go home and take some shit and feel better, 10mg of methadone isn't going to do shit, i dont think i can wait until care team. provider aware, patient offered medications PO, agreeable at this time, patient medicated with another 10mg of methadone and 2mg of ativan, agreeable to waiting for care team and addiction at this time. states he doesnt know how long he is willing to wait.
--- NOTE | 2024-09-21 08:21 | PC.NURSE ---
addiction medicine at bedside at this time
[2024-09-21] MEDS: methADONE HCl 10 MG TABLET 20 MG PO (08:34)
[2024-09-21] MEDS: Naloxone HCl Nasal TAKE HOME 4 MG SPRAY 8 MG NOSTRILALT (08:35)
[2024-09-21 08:39] VITALS: BP 137/66; PULSE 58; RESP 18; TEMP 36.6; O2SAT 99
--- NOTE | 2024-09-21 08:45 | MHC.RECOVRN ---
Met with pt in ED11 after consult placed to Addiction Medicine for opiate detox. Pt had presented to the ED reporting withdrawal from heroin and cocaine. Pt awake, alert, easily engages in conversation, pacing the room. Pt reports heroin/fentanyl use, 5-10 bundles daily, IV as well as cocaine, IV, $10 every hour. Pt reports last use yesterday at noon. Pt reports anxiety, restlessness, inability to sleep. Does not appear diaphoretic, no rhinorrhea, epiphora, yawning, or piloerection noted. Discussed options including [facility] and methadone initiation. Pt has never been to an [facility] in the past, has been on Suboxone. Pt would like to initiate methadone in the ED and follow up with [facility] tomorrow. Pt aware [facility] takes walk ins if he changes his mind and would like to do that. Pt has already received 20 mg methadone today, discussed with ED provider, plan to administer additional 20 mg. Pt denies other questions or concerns for t/w.
--- NOTE | 2024-09-21 09:06 | MHC.RECOVRN ---
Pts referral sent to [facility].
== END 2024-09-21 08:41 | disposition home or self-care (01) ==
PROVIDERS: Emergency Provider Emergency Medicine
DX: F19.10 Other psychoactive substance abuse, uncomplicated (principal); F10.239 Alcohol dependence with withdrawal, unspecified; Y90.0 Blood alcohol level of less than 20 mg/100 ml
CPT/HCPCS: 36415; 80053; 80307; 81001; 85025; 99284